=== PATIENT | female | born 1945 | race Caucasian/White ===

== ENCOUNTER 2018-07-24 08:43 | Outpatient (CLI) | payer MEDICARE, OTHER ==
[~2018-07-24] VITALS: Ht 165.1 cm; Wt 68.0 kg
--- NOTE | ~2018-07-24 | OP ---
PATIENT NAME: KENTRELL MERRILL MEDICAL RECORD: [id number] :43 LOCATION:D.CAT ADMISSION DATE: SURGEON: KASIA FLORES MD DATE OF OPERATION: 07/24/2018 PROCEDURES: 1. PTCA stent LAD. 2. Left heart catheterization. 3. Selective coronary angiography. 4. Left ventriculogram. 5. Intravascular ultrasound. INDICATION: Angina and coronary artery disease. PROCEDURE IN DETAIL: After informed consent was obtained and after a detailed description of the risks, benefits as well as alternative therapies, the patient elected to proceed with angiogram and angioplasty. The right radial area was prepped and draped in normal sterile fashion. Right radial artery was cannulated via modified Seldinger technique with placement of 6-Israeli sheath. All catheters exchanged through this sheath. FINDINGS: Left ventriculogram was performed in the standard 30-degree TRUJILLO view reveals good cardiac wall motion throughout all segments. Overall ejection fraction estimated 60%. SELECTIVE CORONARY ANGIOGRAPHY: 1. Left main is with no significant angiographic disease. 2. Left anterior descending has greater than 80% stenosis in the mid vessel confirmed by intravascular ultrasound. 3. Left circumflex has moderate irregularities, but no flow-limiting stenosis. 4. Right coronary artery has 80% stenosis times 2 in the mid vessel. PTCA STENT OF THE LAD: The stent used was a 2.75 x 22 mm Tomas. Result was 0% residual stenosis. OVERALL IMPRESSION: Successful percutaneous transluminal coronary angioplasty stent of the left anterior descending going from greater than 70% initial stenosis to 0% residual. PLAN: PTCA stent of the RCA in the near future. TRANSINT:[id number] Voice Confirmation ID: [id number] DOCUMENT ID: [id number] KASIA FLORES MD at 1059 CC: [id number] DICTATION DATE: 07/24/18 1132 ART HANDLER: 07/24/18 1136 DEP CLI 07/25/18 [place] [id number]
--- NOTE | ~2018-07-24 | OP ---
PATIENT NAME: KENTRELL MERRILL MEDICAL RECORD: [id number] :43 LOCATION:D.CAT ADMISSION DATE: SURGEON: KASIA FLORES MD DATE OF OPERATION: 07/25/2018 PROCEDURES: 1. PTCA stent RCA. 2. Selective coronary angiography. INDICATION: Angina and coronary artery disease. PROCEDURE IN DETAIL: After informed consent was obtained and after a detailed description of the risks, benefits as well as alternative therapies, the patient elected to proceed with angiogram and angioplasty. The right femoral area was prepped and draped in normal sterile fashion. Right femoral artery was cannulated via modified Seldinger technique with placement of 6-Russian sheath. All catheters exchanged through this sheath. FINDINGS: The right coronary artery has tandem areas of 70% to 80% stenosis in the mid vessel. This was addressed with a 2.5 x 22 mm Seneca stent. Result was 0% residual stenosis. OVERALL IMPRESSION: Successful percutaneous transluminal coronary angioplasty stent of the right coronary artery going from 70% to 80% percent initial stenosis to 0% residual. TRANSINT:[id number] Voice Confirmation ID: [id number] DOCUMENT ID: [id number] KASIA FLORES MD at 1059 CC: [id number] DICTATION DATE: 07/25/18911 DIESEL ENGINE SPECIALIST: 07/25/18932 DEP CLI 07/25/[address] [address]
--- NOTE | ~2018-07-24 | HEMODYNAMI ---
PATIENT:KENTRELL MERRILL MEDICAL RECORD: [id number] : 43 LOCATION:[facility] ADMISSION DATE: 07/24/18 Generatedon:07/25/20189:13 Patient name: KENTRELL MERRILL Patient #: [id number] SSN: : 1945 Date of study: 07/25/2018 Page: Of Hemodynamic Procedure Report Patient Data Patient Demographics Procedure consent was obtained First Name: KENTRELL Gender: Female Last Name: DESIRAE : 1945 Patient #: [id number] Age: 72 year(s) Race: Unknown Additional ID: [id number] Contact details [address]: [address] [place] [address] State: [place] City: [place] Zip code: [address] Past Medical History Allergies Allergen Reaction Date Comments Reported Other allergy 07/24/2018 Demerol Demerol 07/25/2018 Admission Admission Data Admission Date: 07/24/2018 Admission Time: 8:43 Room #: [facility] Height (in.): 66 BSA: 1.78 (m2) Height (cm.): 167.64 BMI: 24.53 (kg/m2) Weight (lbs.): 152 Weight (kg.): 68.95 Procedure Procedure Types Cath Procedure PCI Procedure Coronary Stent Coronary Stent Initial Procedure Description Procedure Date Procedure Date: 07/25/2018 Procedure Start Time: 9:02 Procedure End Time: 9:10 Procedure Staff Name Function Timur Ruffin MD Performing Physician Malik Sifuentes RT Monitor Barbie Bowles RT Scrub Lazaro Roldan RN Nurse Procedure Data Cath Procedure Fluoroscopy Diagnostic fluoroscopy Total fluoroscopy Time: 1.9 time: 1.9 min min Diagnostic fluoroscopy Total fluoroscopy dose: 162 dose: 162 mGy mGy Contrast Material Contrast Material Type Amount (ml) Isovue 300 39 Entry Location Entry Primary Successful Side Size Upsize Upsize Entry Closure Succes sful Closure Location (Fr) 1 (Fr) 2 (Fr) Remarks Device Remarks Femoral Right 6 Fr Exoseal artery Short Procedure Complications No complications Procedure Medications Medication Administration Route Dosage 0.9% NaCl I.V. 100 ml/hr Oxygen etCO2 Nasal cannula 2 l/min Heparin Flush Bag added to field 2 bags (1000units/500ml NS) Lidocaine 2% added to field 20 Versed I.V. 1 mg Fentanyl I.V. 50 mcg Heparin Bolus I.V. 4000 units Hemodynamics Rest BSA: 1.78 (m2) O2 Consumption: Estimated: 157.97 (ml/min) O2 Consumption indexed : Estimated:88.75 (ml/min/m) Heart Rate: 63 (bpm) Snapshots Pre Cath Intra NCS Post Cath Vital Signs Time Heart Resp SPO2 etCO2 NIBP (mmHg) Rhythm Pain Sedation Rate (ipm) (%) (mmHg) Status Level (bpm) 8:49:46 62 18 95 30.7 191/93(126) NSR 0 (11) 10(A) , No pain 8:54:08 63 13 91 30.8 164/92(121) NSR 0 (11) 10(A) , No pain 8:58:24 61 14 96 33.8 162/85(123) NSR 0 (11) 10(A) , No pain 9:02:44 54 17 97 36.8 142/70(108) NSR 0 (11) 9(A) , No pain 9:06:52 59 12 97 11.2 159/87(124) NSR 0 (11) 9(A) , No pain Medications Time Medication Route Dose Verified Delivered Reason Notes Effectiveness by by 8:49:04 0.9% NaCl I.V. 100 Lazaro Lazaro Per physician ml/hr Jamar Roldan RN, RN 8:49:14 Oxygen etCO2 2 Lazaro Lazaro Per physician Nasal l/min Jamar Roldan cannula RN RN 8:49:24 Heparin Flush added 2 Lazaro Lazaro used for Bag to bags Jamar Roldan procedure (1000units/500ml field ANDRZEJ DONNELLY NS) 8:49:34 Lidocaine 2% added 20ml Lazaro Lazaro for local to vial Jamar Roldan anesthetic field DONNELLY RN 8:57:44 Versed I.V. 1 mg Lazaro Lazaro for sedation Jamar Roldan RN, RN 8:57:53 Fentanyl I.V. 50 Lazaro Lazaro for sedation mcg Jamar Roldan RN, RN 9:03:37 Heparin Bolus I.V. 4000 Lazaro Lazaro for units Jamar Roldan anticoagulation RN fur clipper Log Time Note 8:23:35 Diagnostic Cath Status : Elective 8:23:57 Barbie Bowles RT(R) sent for patient. Start room use. 8:23:59 Patient Height : 66 inches 8:23:59 Patient Weight : 152 lbs 8:23:59 Time tracking: Regular hours (M-F 7:00 - 5:00) 8:24:10 Plan of Care:Hemodynamics will remain stable., Cardiac rhythm will remain stable., Comfort level will be maintained., Respiratory function will remain adequate., Patient/ family verbilizes understanding of procedure., Procedure tolerated without complication., Recovers from procedure without complications.. 8:40:19 Patient received from Med II to CCL 1 Alert and oriented. Tansferred to table in Supine position. 8:40:22 Warm blankets applied, and marizol hugger turned on for patient comfort. 8:40:22 Correct patient and procedure confirmed by team. 8:40:24 Signed procedure consent form obtained from patient. 8:40:26 ECG and BP/O2 sat monitors applied to patient. 8:47:33 Vital chart was started 8:47:40 Baseline sample Acquired. 8:47:44 Rhythm: sinus rhythm 8:47:46 Full Disclosure recording started 8:47:53 H&P Date Dictated: 07/24/2018 Within 30 days and on chart.. 8:47:55 Pre-op teaching completed and patient verbalized understanding. 8:47:56 Family in waiting room. 8:49:04 0.9% NaCl 100 ml/hr I.V. was administered by Lazaro Roldna RN; Per physician; 8:49:14 Oxygen 2 l/min etCO2 Nasal cannula was administered by Lazaro Roldan RN; Per physician; 8:49:24 Heparin Flush Bag (1000units/500ml NS) 2 bags added to field was administered by Lazaro Roldan RN; used for procedure; 8:49:34 Lidocaine 2% 20ml vial added to field was administered by Lazaro Roldan RN; for local anesthetic; 8:50:14 Patient NPO since Midnight. 8:50:20 Patient allergic to Demerol 8:50:25 Is the patient allergic to Iodine/contrast media? No. 8:50:27 Is patient on blood thinner?Yes 8:50:29 Patient diabetic? No. 8:50:31 ----Pre-sedation anethsthesia assessment.---- 8:50:33 Previous problem with sedation/anesthesia? No ? 8:50:34 Snore? No 8:50:36 Sleep apnea? No 8:50:37 Deviated septum? No 8:50:38 Opens mouth fully? Yes 8:50:39 Sticks out tongue? Yes 8:50:42 Airway obstruction? No ? 8:50:44 Dentures? No ? 8:50:46 Pre procedure: right dorsailis pedis pulse 2+ Normal; easily identifiable; not easily obliterated 8:50:51 Patient pain scale 0/10 ?. 8:55:58 IV patent on arrival in left forearm with 0.9% NaCl at 10ml/hr. 8:56:06 Lab results completed and on chart. 8:56:09 Right groin area was prepped with chlora-prep and draped in sterile fashion 8:56:10 Alarms reviewed by R. N. 8:56:10 Sharps counted by scrub and verified by R.N. 8:56:13 --------ALL STOP TIME OUT------ 8:56:13 Final Timeout: patient, procedure, and site verified with staff and physician. All members of the team are in agreement. 8:56:15 Right groin site verified by team. 8:56:18 Physical assessment completed. ASA score P 2 - A patient with mild systemic disease as per Timur Ruffin MD. 8:56:20 Sedation plan: IV Moderate Sedation Medication:Versed, Fentanyl 8:57:44 Versed 1 mg I.V. was administered by Lazaro Roldan RN; for sedation; 8:57:53 Fentanyl 50 mcg I.V. was administered by Lazaro Roldan RN; for sedation; 9:02:04 INFLATOR Merit BasixCompak ([id number]) opened to sterile field. 9:02:10 CHOICE PT Extra Support 182cm wire ([id number]) opened to sterile field. 9:02:15 EXOSEAL 6Fr (EX600) opened to sterile field. 9:02:18 SHEATH Prelude 6Fr 0.035 (YIN-3T-73-035) opened to sterile field. 9:02:26 ACIST Syringe (44928) opened to sterile field. 9:02:27 Bag Decanter (2001S) opened to sterile field. 9:02:28 Medline Cath Pack ([id number]) opened to sterile field. 9:02:28 DIAGNOSTIC WIRE .035 260cm J wire (393983) opened to sterile field. 9:02:30 ACIST Hand Control (11693) opened to sterile field. 9:02:31 ACIST Manifold (53318) opened to sterile field. 9:02:34 Tegaderm 4 x 4 (1626W) opened to sterile field. 9:02:43 Procedure started. 9:02:46 Local anesthetic to right femoral artery with Lidocaine 2% by Timur Ruffin MD.INITIAL ACCESS ONLY 9:02:53 A 6 Fr Short sheath was inserted into the Right Femoral artery 9:03:00 ACC Pre-intervention KENN Flow is 3. 9:03:09 6 Fr HS 2 SH guide catheter was inserted over the wire 9:03:16 GUIDE 6FR HS II SH catheter ([id number]) opened to sterile field. 9:03:25 CPTES wire advanced. 9:03:37 Heparin Bolus 4000 units I.V. was administered by Lazaro Roldan RN; for anticoagulation; 9:05:39 Procedure type changed to Cath procedure, PCI procedure, Coronary Stent, Coronary Stent Initial 9:06:06 Place stent Inflation Number: 1 A BEATRIZ RX 2.5 x 22 stent ([id number]) was prepped and advanced across the Mid RCA. The stent was deployed at 11 KAYDEN for 0:09 (min:sec). 9:06:40 Stent catheter was removed intact over wire. 9:06:42 Wire removed. 9:06:42 Guide catheter removed. 9:07:30 Sheath removed intact; hemostasis achieved with Exoseal to the Right Femoral artery. 9:07:32 Procedure ended.(Physican Out) 9:07:44 Fluoroscopy time 01.90 minutes. 9:07:48 Flurop Dose total: 162 9:07:48 Fluoroscopy dose: 162 mGy 9:07:51 Contrast amount:Isovue 300 39ml. 9:07:52 Sharps counted by scrub and verified by R.N. 9:07:54 Insertion/operative site no bleeding no hematoma. 9:07:57 Post-op/insertion site Right Femoral artery dressed using a 4 x 4 and Tegaderm. 9:07:59 Post right femoral artery:stable 9:08:01 Post Procedure Pulses reassessed and unchanged 9:08:04 Post procedure rhythm: sinus rhythm 9:08:05 Post procedure instruction explained to patient.Patient verbalizes understanding. 9:08:07 Procedure and supply charges have been captured, reviewed, submitted and are correct. 9:08:27 Procedure Complication : No complications 9:08:29 Vital chart was stopped 9:08:30 See physician's report for complete and final results. 9:10:05 Report given to Pre/Post Procedure Room. 9:10:08 Patient transfered to Pre/Post Procedure Room with Stretcher. 9:10:11 Procedure ended. 9:10:11 Full Disclosure recording stopped 9:10:34 ACC-PCI Only Patient was given prescriptions, or instructed by Timur Ruffin MD to start/continue the following medications upon discharge: Plavix 9:10:36 End room use (Document Last) Intervention Summary Intervention Notes Time ActionType Lesion and Equipment Used Action# Pressure Duration Attributes 9:06:06 Place stent Mid RCA BEATRIZ RX 2.5 x 1 11 00:09 22 stent ([id number]) Device Usage Item Name Manufacture Quantity Catalog Number Hospital Part Current Minimal Lot# / Charge Number Stock Stock Serial# Code INFLATOR Merit Merit 1 [id number] 701106 [id number] 15 [facility] CenterFastly Medical ([id number]) CHOICE PT Extra [place] 1 [id number] 090716 840263 416305 5 Support 182cm Scientific wire ([id number]) EXOSEAL 6Fr Cardinal 1 EX600 708862 622223 587324 10 (EX600) Health SHEATH Prelude Merit 1 [id number] 968676 3994465 686533 5 6Fr 0.035 Medical (VIS-3I-66-035) ACIST Syringe Acist 1 80188 497229 634127 969648 20 (24163) Medical Systems [employer] Bag Decanter Microtek 1 2001S 907436 83014 065095 5 (2001S) Medical Inc. Medline Cath Medline 1 [id number] 189914 47691 073360 5 Pack ([id number]) DIAGNOSTIC WIRE [facility] [place] 1 478072 096293 496120 141519 30 .035 260cm J wire (190475) ACIST Hand Acist 1 74617 380592 652675 146808 5 Control (96485) Medical [employer] Inc ACIST Manifold Acist 1 02965 170056 818614 009450 5 (78455) Medical Systems Inc Tegaderm 4 x 4 3M 1 1626W 285570 914828 870822 5 (1626W) GUIDE 6FR HS II Medtronic 1 [id number] 359147 02194 984368 1 SH catheter ([id number]) BEATRIZ RX 2.5 x Medtronic 1 [id number] 732928 6953160 681220 5 [id number] 22 stent ([id number]) Signature Audit [place] Stage Time Signature Unsigned Intra-Procedure 07/25/2018 Malik NAZARIO(Marvin) 9:13:08 AM Signatures Monitor : Malik Sifuentes RT Signature : Date : Time : [place] [address] [place] [address]
--- NOTE | ~2018-07-24 | HEMODYNAMI ---
PATIENT:KENTRELL MERRILL MEDICAL RECORD: [id number] : 43 LOCATION:[facility] ADMISSION DATE: 07/24/18 Generatedon:07/24/201811:35 Patient name: KENTRELL MERRILL Patient #: [id number] SSN: : 1945 Date of study: 07/24/2018 Page: Of Hemodynamic Procedure Report Patient Data Patient Demographics Procedure consent was obtained First Name: KENTRELL Gender: Female Last Name: DESIRAE : 1945 Patient #: [id number] Age: 72 year(s) Race: Unknown Additional ID: [id number] Contact details [address]: [address] [place] [address] State: [place] City: [place] Zip code: [address] Past Medical History Allergies Allergen Reaction Date Comments Reported Other allergy 07/24/2018 Demerol Admission Admission Data Admission Date: 07/24/2018 Admission Time: 8:43 Height (in.): 66 BSA: 1.78 (m2) Height (cm.): 167.64 BMI: 24.53 (kg/m2) Weight (lbs.): 152 Weight (kg.): 68.95 Procedure Procedure Types Cath Procedure Diagnostic Procedure LHC LH w/Coronaries FFR/IVUS Intra-Coronary IVUS Initial Sedation Charges Moderate Sedation up to 15 minutes PCI Procedure Coronary Stent Coronary Stent Initial Procedure Description Procedure Date Procedure Date: 07/24/2018 Procedure Start Time: 11:14 Procedure End Time: 11:33 Procedure Staff Name Function Timur Ruffin MD Performing Physician Micah Martinez RN Utilization Manager Hanane Hairston RT Monitor Duane Romero RN Nurse Barbie Bowles RT Scrub Procedure Data Cath Procedure Fluoroscopy Diagnostic fluoroscopy Total fluoroscopy Time: 5.2 time: 5.2 min min Diagnostic fluoroscopy Total fluoroscopy dose: 527 dose: 527 mGy mGy Contrast Material Contrast Material Type Amount (ml) Isovue 300 85 Entry Location Entry Primary Successful Side Size Upsize Upsize Entry Closure Hopkins ccessful Closure Location (Fr) 1 (Fr) 2 (Fr) Remarks Device Remarks Radial Right 6 Fr Mechanical artery Short Compression Estimated blood loss: 10 ml Diagnostic catheters Device Type Used For End Catheter Placement DIAGNOSTIC [place] 110cm 5 Procedure Fr catheter ([id number]) Procedure Complications No complications Procedure Medications Medication Administration Route Dosage Oxygen etCO2 Nasal cannula 2 l/min Lidocaine 2% added to field 20 Heparin Flush Bag added to field 2 bags (1000units/500ml NS) 0.9% NaCl I.V. 100 ml/hr Radial Cocktail I.A. 1 syringe (Verapomil 2mg/Nitro 400mcg/Heparin 1500units) Versed I.V. 1 mg Fentanyl I.V. 50 mcg Versed I.V. 0.5 mg Fentanyl I.V. 25 mcg Heparin Bolus I.V. 4000 units Integrilin (Bolus I.V. 6.2 ml 2mg/ml) Plavix P.O. 600 mg Hemodynamics Rest BSA: 1.78 (m2) O2 Consumption: Estimated: 153.36 (ml/min) O2 Consumption indexed : Estimated:86.16 (ml/min/m) Heart Rate: 56 (bpm) Snapshots Pre Cath Intra NCS Post Cath Vital Signs Time Heart Resp SPO2 etCO2 NIBP (mmHg) Rhythm Pain Sedation Rate (ipm) (%) (mmHg) Status Level (bpm) 10:39:10 55 18 94 29 136/74(97) NSR 0 (11) 10(A) , No pain 10:43:16 61 13 98 37.2 142/82(105) NSR 0 (11) 10(A) , No pain 10:47:26 59 15 96 38.7 139/78(101) NSR 0 (11) 10(A) , No pain 10:51:38 61 13 96 39.4 136/71(99) NSR 0 (11) 10(A) , No pain 10:55:48 56 13 97 39.4 120/74(96) NSR 0 (11) 10(A) , No pain 10:59:54 58 13 97 39.4 118/66(93) NSR 0 (11) 10(A) , No pain 11:03:59 58 14 96 38.7 118/67(89) NSR 0 (11) 10(A) , No pain 11:08:05 55 14 97 38.7 115/65(84) NSR 0 (11) 10(A) , No pain 11:12:11 58 13 96 11.9 110/64(88) NSR 0 (11) 9(A) , No pain 11:16:19 61 15 98 20.8 103/47(92) NSR 0 (11) 9(A) , No pain 11:20:21 71 15 95 32.7 118/57(93) NSR 0 (11) 9(A) , No pain 11:24:26 68 17 96 32 124/62(84) NSR 0 (11) 9(A) , No pain 11:28:34 66 17 97 34.2 114/60(83) NSR 0 (11) 10(A) , No pain 11:33:33 67 12 98 32.7 124/74(101) NSR 0 (11) 10(A) , No pain Medications Time Medication Route Dose Verified Delivered Reason Not es Effectiveness by by 10:43:02 Oxygen etCO2 2 l/min Timur Zepeda used for Nasal Laly Romero RN procedure cannula 10:43:10 Lidocaine 2% added 20ml Timur Ding for local to vial Laly Ruffin MD anesthetic field 10:43:16 Heparin Flush added 2 bags Timur Ding used for Bag to Laly Ruffin MD procedure (1000units/500ml field NS) 10:43:27 0.9% NaCl I.V. 100 Timur Zepeda Per physician ml/hr Laly Romero RN 11:08:25 Versed I.V. 1 mg Timur Zepeda for sedation Laly Romero RN 11:08:31 Fentanyl I.V. 50 mcg Timur Zepeda for sedation Laly Romero RN 11:15:23 Radial Cocktail I.A. 1 Timur Timur for (Verapomil syringe Laly Ruffin MD vasodilation 2mg/Nitro 400mcg/Heparin 1500units) 11:15:35 Versed I.V. 0.5 mg Timur Lopezie for sedation Laly Romero RN 11:15:40 Fentanyl I.V. 25 mcg Timur Lopezie for sedation Laly Romero RN 11:20:45 Heparin Bolus I.V. 4000 Timur Lopezie for cindi ified units Laly Romero RN anticoagulation with dr ruffin 11:22:13 Integrilin I.V. 6.2 ml Timur Buffie for was alicia (Bolus 2mg/ml) Laly Romero RN antiplatelet 3.8 ml therapy of vial 11:30:02 Plavix P.O. 600 mg Timur Romero RN antiplatelet therapy Procedure Log Time Note 10:32:42 Patient Height : 66 inches 10:32:46 Patient Weight : 152 lbs 10:33:20 Diagnostic Cath status Elective 10:33:22 Micah Martinez RN sent for patient. Start room use. 10:33:51 Time tracking: Regular hours (M-F 7:00 - 5:00) 10:33:57 Plan of Care:Hemodynamics will remain stable., Cardiac rhythm will remain stable., Comfort level will be maintained., Respiratory function will remain adequate., Patient/ family verbilizes understanding of procedure., Procedure tolerated without complication., Recovers from procedure without complications.. 10:34:22 Patient received from Pre/Post Procedure Room to [facility] 2 Alert and oriented. Tansferred to table in Supine position. 10:34:24 Warm blankets applied, and marizol hugger turned on for patient comfort. 10:34:24 Correct patient and procedure confirmed by team. 10:34:27 Signed procedure consent form obtained from patient. 10:34:28 ECG and BP/O2 sat monitors applied to patient. 10:38:00 Vital chart was started 10:42:50 Baseline sample Acquired. 10:43:01 Rhythm: sinus rhythm 10:43:02 Oxygen 2 l/min etCO2 Nasal cannula was administered by Duane Romero RN; used for procedure; 10:43:03 Full Disclosure recording started 10:43:10 Lidocaine 2% 20ml vial added to field was administered by Timur Ruffin MD; for local anesthetic; 10:43:16 Heparin Flush Bag (1000units/500ml NS) 2 bags added to field was administered by Timur Ruffin MD; used for procedure; 10:43:18 H&P Date Dictated: 07/19/2018 Within 30 days and on chart., H&P Addendum completed by physician on day of procedure. (MUST COMPLETE FOR ALL OUTPATIENTS). 10:43:20 Pre-procedure instructions explained to patient. 10:43:22 Family in waiting room. 10:43:23 Patient NPO since Midnight. 10:43:27 0.9% NaCl 100 ml/hr I.V. was administered by Duane Romero RN; Per physician; 10:43:36 Patient allergic to Other allergyDemerol 10:43:39 Is the patient allergic to Iodine/contrast media? No. 10:43:40 Was the patient premedicated? Yes 10:43:42 Is patient on blood thinner?No 10:43:43 Patient diabetic? No. 10:44:01 Previous problem with sedation/anesthesia? No ? 10:44:12 Snore? No 10:44:13 Sleep apnea? No 10:44:24 Patient pain scale 0/10 ?. 10:45:04 IV patent on arrival in left forearm with 0.9% NaCl at [facility]. 10:45:08 Lab results completed and on chart. 10:45:12 Right Radial & Right Groin area was prepped with chlora-prep and draped in sterile fashion 10:45:13 Alarms reviewed by R. N. 10:45:13 Sharps counted by scrub and verified by R.N. 10:45:15 Physician paged 11:07:23 Physician arrived 11:07:24 --------ALL STOP TIME OUT------ 11:07:25 Final Timeout: patient, procedure, and site verified with staff and physician. All members of the team are in agreement. 11:07:30 Right Radial & Right Groin site verified by team. 11:07:33 Physical assessment completed. ASA score P 2 - A patient with mild systemic disease as per Timur Ruffin MD. 11:07:38 Sedation plan: IV Moderate Sedation Medication:Versed, Fentanyl 11:07:48 Use device set Radial Dx or PCI 11:08:10 ACIST Syringe (07303) opened to sterile field. 11:08:11 Medline Cath Pack ([id number]) opened to sterile field. 11:08:11 Bag Decanter () opened to sterile field. 11:08:12 DIAGNOSTIC WIRE .035 260cm J wire (952069) opened to sterile field. 11:08:13 ACIST Hand Control (40398) opened to sterile field. 11:08:13 ACIST Manifold (68232) opened to sterile field. 11:08:14 Tegaderm 4 x 4 (1626W) opened to sterile field. 11:08:15 MBrace Wrist Support ([id number]) opened to sterile field. 11:08:16 NEEDLE Cook 21G 4cm Radial (D18517) opened to sterile field. 11:08:20 SHEATH 6Fr Prelude Radial ([id number]) opened to sterile field. 11:08:24 Zero performed for pressure channel P1 11:08:25 Versed 1 mg I.V. was administered by Duane Romero RN; for sedation; 11:08:31 Fentanyl 50 mcg I.V. was administered by Duane Romero RN; for sedation; 11:13:47 Procedure started. 11:14:04 Local anesthetic to right radial artery with Lidocaine 2% by Timur Ruffin MD.INITIAL ACCESS ONLY 11:14:15 A 6 Fr Short sheath was inserted into the Right Radial artery 11:14:24 A DIAGNOSTIC [place] 110cm 5 Fr catheter (390302) was advanced over the wire and used for Procedure. 11:14:27 TR BAND Standard ([id number]) opened to sterile field. 11:14:39 LV angiography performed. 11:15:23 Radial Cocktail (Verapomil 2mg/Nitro 400mcg/Heparin 1500units) 1 syringe I.A. was administered by Timur Ruffin MD; for vasodilation; 11:15:35 Versed 0.5 mg I.V. was administered by Duane Romero RN; for sedation; 11:15:40 Fentanyl 25 mcg I.V. was administered by Duane Romero RN; for sedation; 11:15:54 LV gram done using TRUJILLO 11:16:01 EF : 60 % 11:17:17 RCA angiography performed. 11:17:22 Catheter removed. 11:17:41 GUIDE 6FR XBLAD 3.5 catheter ([id number]) opened to sterile field. 11:17:55 LCA angiography performed. 11:19:39 CHOICE PT Extra Support 182cm wire ([id number]) opened to sterile field. 11:19:40 INFLATOR Merit BasixCompak (TJ6595) opened to sterile field. 11:19:47 Proceeding to intervention. 11:20:03 choice pt ex wire advanced. 11:20:45 Heparin Bolus 4000 units I.V. was administered by Duane Romero RN; for anticoagulation; verified with dr ruffin 11:20:46 Wire advanced across lesion. 11:21:27 IVUS catheter advanced over wire. 11:22:13 Integrilin (Bolus 2mg/ml) 6.2 ml I.V. was administered by Duane Romero RN; for antiplatelet therapy; wasted 3.8 ml of vial 11:: IVUS catheter removed over wire. 11:25:15 Choice ex exchanged for long wire 11::29 CHOICE PT Extra Support J 300cm guide wire ([id number]) opened to sterile field. 11::46 Place stent Inflation Number: 1 A BEATRIZ OTW 2.75 x 22 stent ([id number]) was prepped and advanced across the Mid LAD. The stent was deployed at 15 KAYDEN for 0:11 (min:sec). 11::33 Stent catheter was removed intact over wire. 11::34 Wire removed. 11::34 Guide catheter removed. 11::45 Sheath removed intact; hemostasis achieved with Mechanical Compression to the Right Radial artery. 11:29:47 Procedure ended.(Physican Out) 11:30:02 Plavix 600 mg P.O. was administered by Duane Romero RN; for antiplatelet therapy; 11::24 Fluoroscopy time 05.20 minutes. 11:30:27 Flurop Dose total: 527 11::27 Fluoroscopy dose: 527 mGy 11::33 Contrast amount:Isovue 300 85ml. 11:30:34 Sharps counted by scrub and verified by R.N. 11:30:37 TR band inflated with 13cc of air. 11:30:56 Insertion/operative site no bleeding no hematoma. 11:31:03 Post-op/insertion site Right Radial artery dressed using a 4 x 4 and Tegaderm. 11:31:10 Post-procedure physical assessment completed. ASA score P 2 - A patient with mild systemic disease as per Timur Ruffin MD. 11:31:13 Post procedure rhythm: unchanged. 11::18 Estimated blood loss: 10 ml 11:31:19 Post procedure instruction explained to patient.Patient verbalizes understanding. 11::45 Procedure type changed to Cath procedure, Diagnostic procedure, LHC, LHC w/Coronaries, FFR/IVUS, Intra-Coronary IVUS Initial, Sedation Charges, Moderate Sedation up to 15 minutes, PCI procedure, Coronary Stent, Coronary Stent Initial 11:31:48 Procedure and supply charges have been captured, reviewed, submitted and are correct. 11:32:49 Procedure Complication : No complications 11:32:52 Vital chart was stopped 11:32:52 See physician's report for complete and final results. 11:32:54 Report given to Pre/Post Procedure Room. 11:32:58 Patient transfered to [facility] with Bed. 11:33:00 Procedure ended. 11:33:00 Full Disclosure recording stopped 11:33:04 End room use (Document Last) Intervention Summary Intervention Notes Time ActionType Lesion and Equipment Action# Pressure Duration Attributes Used 11:26:46 Place stent Mid LAD BEATRIZ OTW 2.75 1 15 00:11 x 22 stent ([id number]) Device Usage Item Name Manufacture Quantity Catalog Number Hospital Part Current Minimal Lot# / Charge Number Stock Stock Serial# Code ACIST Syringe Acist 1 47605 [id number] 488306 686816 20 (51226) Medical [employer] Medline Cath Medline 1 [id number] 423195 26536 773603 5 Pack ([id number]) Bag Decanter Microtek 1 2001S 609914 23073 940078 5 (2001S) Medical Inc. DIAGNOSTIC WIRE [facility] [place] 1 536131 825388 729557 851392 30 .035 260cm J wire (892464) ACIST Hand Acist 1 37439 769063 329085 874775 5 Control (80951) [employer] Inc ACIST Manifold Acist 1 30406 446344 437056 622414 5 (22258) Medical Systems Inc Tegaderm 4 x 4 3M 1 1626W 989835 096542 639794 5 (1626W) MBrace Wrist Advanced 1 140-0250-00 658008 90150 442041 5 Support Vascular ([id number]) Dynamics NEEDLE Cook 21G Cook Medical 1 F90368 771566 355840 221844 5 4cm Radial (T92329) SHEATH 6Fr Merit 1 [id number] 779920 866853 341844 5 Prelude Radial Medical ([id number]) DIAGNOSTIC Terumo 1 40-3053 424551 325214 529494 5 [place] 110cm 5 Fr catheter (514706) TR BAND Terumo 1 [id number] 914026 383439 449414 40 Standard ([id number]) GUIDE 6FR XBLAD Cardinal 1 [id number] 991307 448969 074201 10 3.5 catheter Health (64110201) CHOICE PT Extra [place] 1 [id number] 526487 977505 105121 5 Support 182cm Scientific wire ([id number]) INFLATOR Merit Merit 1 KR4301 182031 504230 293059 15 [facility] Medical (BY1465) CHOICE PT Extra [place] 1 [id number] 466792 186459 906908 5 Support J 300cm Scientific guide wire ([id number]) BEATRIZ OTW 2.75 x Medtronic 1 [id number] 222546 9120386 278847 5 [id number] 22 stent ([id number]) Signature Audit [place] Time Signature Unsigned Intra-Procedure 07/24/2018 Hanane Hairston 11:35:13 AM RT(R) Signatures Monitor : Hanane Hairston Signature : RT Date : Time : [place] [id number] [place] [address]
--- NOTE | ~2018-07-24 | DS ---
PATIENT:KENTRELL RIVERA :43 MEDICAL RECORD: [id number] DISCHARGE SUMMARY ADMISSION DATE: 07/24/18 DISCHARGE DATE: 07/25/18 DIAGNOSES: 1. Angina. 2. Coronary artery disease. 3. PTCA stent RCA and LAD this admission. HOSPITAL COURSE: Ms. Rivera presents with anginal symptomatology, found to have 2-vessel coronary artery disease of the RCA and LAD, underwent successful PTCA stent of both territories, was discharged home with the addition of aspirin and Plavix to her medical regimen. Follow up with [facility] in [facility] month. TRANSINT:[id number] Voice Confirmation ID: [id number] DOCUMENT ID: [id number] KASIA FLORES MD at 1059 CC: [id number] DICTATION DATE: 07/25/18912 PRINCIPLE SOFTWARE ENGINEER: 07/25/18 2311 DEP CLI 07/25/[address] [address]
[2018-07-24] MEDS ORDERED: METOPROLOL TART25 MG PO (09:07)
[2018-07-24 09:20] VITALS: BP 154/84; BMI 24.6
[2018-07-24 09:53] LABS: BASOPHILS 0.1 % (0-2); EOSINOPHILS 2.1 % (0-7); HEMATOCRIT 47.1 % (36.0-48.0); HEMOGLOBIN 15.8 g/dL (12-16); IMMATURE GRANULOCYTES 0.2 % (0-5); LYMPHOCYTES 18.5 % (15-50); MCH 30.4 pg (26.0-34.0); MCHC 33.5 g/dL (31.0-37.0); MCV 90.6 fL (80.0-100.0); MEAN PLATELET VOLUME 10.4 fL (7.4-10.4); MONOCYTES 7.1 % (2-11); PLATELET COUNT 179 10x3/uL (130-400); RDW 13.2 % (11.5-14.5); WBC 8.9 10x3/uL (4.8-10.8)
[2018-07-24 10:05] LABS: CALC OSMOLALITY 285 mosm/kg (275-300); CALCIUM 9.5 mg/dL (8.5-10.1); CARBON DIOXIDE 29.7 mmol/L (21.0-32.0); CHLORIDE - SERUM 105 mmol/L (98-107); CREATININE - SERUM 0.7 mg/dL (0.6-1.3); GLUCOSE 94 mg/dL (74-106); POTASSIUM - SERUM 3.9 mmol/L (3.5-5.1); SODIUM 143 mmol/L (136-145); UREA NITROGEN 16 mg/dL (7-18); eGFR NON AFRICAN AMERICAN 87 mL/min (90-120)
[2018-07-24 14:49] VITALS: BP 131/76; Ht 165.1 cm; Wt 68.0 kg
[2018-07-24 21:01] VITALS: BP 124/73
[2018-07-25 01:29] VITALS: BP 117/63
[2018-07-25 05:44] VITALS: BP 170/87
[2018-07-25 08:13] VITALS: BP 156/80
[2018-07-25] MEDS ORDERED: PLAVIX75 MG PO (09:48)
== END 2018-07-25 13:40 | disposition home or self-care (01) ==
LOC: D.CATH 08:43 → D.M2 08:43 → D.CATH 10:30 → D.M2 14:01 → D.CLR 07-25 09:26 → D.CATH 07-25 13:40
PROVIDERS: Internal Medicine Interventional Cardiology
DX: I25.119 Atherosclerotic heart disease of native coronary artery with unspecified angina pectoris (principal); Z01.812 Encounter for preprocedural laboratory examination
CPT/HCPCS: 92978; 93458; C9600 ×2

== ENCOUNTER → 2018-12-05 09:54 | Outpatient (CLI) | payer MEDICARE, OTHER ==
[2018-07-24 14:49] VITALS: BMI 25.0
[~2018-12-05 09:54] MED LIST: METOPROLOL TART25 MG PO; PLAVIX75 MG PO
== END | disposition home or self-care (01) ==
LOC: D.HCCARDIO 09:54
PROVIDERS: ATTEND Internal Medicine Cardiovascular Disease
DX: I25.119 Atherosclerotic heart disease of native coronary artery with unspecified angina pectoris (principal)

== ENCOUNTER 2019-02-09 09:55 | Outpatient (CLI) | payer MEDICARE, OTHER ==
[~2019-02-09] VITALS: Ht 165.1 cm; Wt 68.2 kg
--- NOTE | ~2019-02-09 | HEMODYNAMI ---
PATIENT:KENTRELL MERRILL MEDICAL RECORD: [id number] : 43 LOCATION:[facility] ADMISSION DATE: 02/09/19 Generatedon:02/09/201914:06 Patient name: KENTRELL MERRILL Patient #: [id number] SSN: : 1945 Date of study: 02/09/2019 Page: Of Hemodynamic Procedure Report Patient Data Patient Demographics Procedure consent was obtained First Name: KENTRELL Gender: Female Last Name: DESIRAE : 1945 Patient #: [id number] Age: 73 year(s) Race: Additional ID: [id number] Contact details [address]: [address] [place] [address] State: [place] City: [place] Zip code: [address] Past Medical History Allergies Allergen Reaction Date Comments Reported Other allergy 07/24/2018 Demerol Demerol 07/25/2018 Admission Admission Data Admission Date: 02/09/2019 Admission Time: 9:55 Arrival Date: 02/09/2019 Arrival Time: 0:00 Admit Source: Other Height (in.): 64.96 BSA: 1.75 (m2) Height (cm.): 165 BMI: 24.98 (kg/m2) Weight (lbs.): 149.92 Weight (kg.): 68 Lab Results Lab Result Date: 02/09/2019 Lab Result Time: 0:00 Biochemistry Name Units Result Min Max BUN mg/dl 13 --(--*-)-- 7 18 Creatinine mg/dl 0.8 --(-*--)-- 0.6 1.3 CBC Name Units Result Min Max Hemoglobin g/dl 15.1 --(-*--)-- 13.5 17.5 Procedure Procedure Types Cath Procedure Diagnostic Procedure [facility] w/Coronaries Procedure Description Procedure Date Procedure Date: 02/09/2019 Procedure Start Time: 13:57 Procedure End Time: 14:04 Procedure Staff Name Function Timur Ruffin MD Performing Physician Barbie Bowles RT Monitor Madison Peralta RN Nurse Puneet Banuelos RT Scrub Procedure Data Cath Procedure Fluoroscopy Diagnostic fluoroscopy Total fluoroscopy Time: 1 time: 1 min min Diagnostic fluoroscopy Total fluoroscopy dose: 287 dose: 287 mGy mGy Contrast Material Contrast Material Type Amount (ml) Isovue 370 33 Entry Location Entry Primary Successful Side Size Upsize Upsize Entry Closure Hopkins ccessful Closure Location (Fr) 1 (Fr) 2 (Fr) Remarks Device Remarks Radial Right 6 Fr Mechanical artery Short Compression Estimated blood loss: 5 ml Diagnostic catheters Device Type Used For End Catheter Placement DIAGNOSTIC [place] 110cm 5 Multi-vessel Fr catheter ([id number]) Angiography Procedure Complications No complications Procedure Medications Medication Administration Route Dosage 0.9% NaCl I.V. 100 ml/hr Oxygen etCO2 Nasal cannula 2 l/min Lidocaine 2% added to field 20 Heparin Flush Bag added to field 2 bags (1000units/500ml NS) Radial Cocktail added to field 1 syringe (Verapamil 2mg/Nitro 400mcg/Heparin 1500units) Versed I.V. 2 mg Fentanyl I.V. 50 mcg Hemodynamics Rest BSA: 1.75 (m2) HGB: 15.1 (g/dl) O2 Consumption: Estimated: 155.21 (ml/min) O2 Co nsumption indexed: Estimated:88.69 (ml/min/m) Heart Rate: 63 (bpm) Pressure Samples Time Site Value (mmHg) Purpose Heart Use Rate(bpm) 13:59 LV 164/-6,1 Snapshot 72 Snapshots Pre Cath Intra NCS Post Cath Vital Signs Time Heart Resp SPO2 etCO2 NIBP (mmHg) Rhythm Pain Sedation Rate (ipm) (%) (mmHg) Status Level (bpm) 13:41:42 57 16 97 36.8 156/85(125) SB 0 (11) 10(A) , No pain 13:46:40 61 5 99 39.1 Measuring NSR 0 (11) 10(A) , No pain 13:47:03 65 12 99 36 198/109(127) NSR 0 (11) 10(A) , No pain 13:51:29 73 17 99 36.8 179/98(124) NSR 0 (11) 10(A) , No pain 13:55:51 65 14 100 31.6 174/95(119) NSR 0 (11) 9(A) , No pain 14:00:14 75 13 99 27 140/84(101) NSR 0 (11) 10(A) , No pain 14:04:23 74 15 96 36.1 150/90(114) NSR 0 (11) 10(A) , No pain Medications Time Medication Route Dose Verified Delivered Reason Notes E ffectiveness by by 13:40:39 0.9% NaCl I.V. 100 Timur Madison used for ml/hr Laly Peralta theoretical physics teacher 13:40:46 Oxygen etCO2 2 l/min Timur Madison used for Nasal Laly Peralta procedure cannula RN 13:40:51 Lidocaine 2% added 20ml Timurcarol Ding for local to vial Laly Ruffin MD anesthetic field 13:40:55 Heparin Flush added 2 bags Timur Ding used for Bag to Laly Ruffin MD procedure (1000units/500ml field NS) 13:41:00 Radial Cocktail added 1 Timur Ding used for (Verapamil to syringe Laly Ruffin MD procedure 2mg/Nitro field 400mcg/Heparin 1500units) 13:52:38 Versed I.V. 2 mg Timur Lemusyla for Laly Peralta sedation RN 13:52:44 Fentanyl I.V. 50 mcg Timur Meridaa for Laly Peralta sedation assistant professor of psychology Log Time Note 13:27:37 Diagnostic Cath Status : Elective 13:28:49 Puneet Banuelos RT(R) (CV) sent for patient. Start room use. 13:28:55 Time tracking: Regular hours (M-F 7:00 - 5:00) 13:29:03 Plan of Care:Hemodynamics will remain stable., Cardiac rhythm will remain stable., Comfort level will be maintained., Respiratory function will remain adequate., Patient/ family verbilizes understanding of procedure., Procedure tolerated without complication., Recovers from procedure without complications.. 13:40:27 Vital chart was started 13:40:39 0.9% NaCl 100 ml/hr I.V. was administered by Madison Peralta RN; used for procedure; 13:40:46 Oxygen 2 l/min etCO2 Nasal cannula was administered by Madison Peralta RN; used for procedure; 13:40:51 Lidocaine 2% 20ml vial added to field was administered by Timur Ruffin MD; for local anesthetic; 13:40:55 Heparin Flush Bag (1000units/500ml NS) 2 bags added to field was administered by Timur Ruffin MD; used for procedure; 13:41:00 Radial Cocktail (Verapamil 2mg/Nitro 400mcg/Heparin 1500units) 1 syringe added to field was administered by Timur Ruffin MD; used for procedure; 13:44:00 Patient received from Pre/Post Procedure Room to CCL 2 Alert and oriented. Tansferred to table in Supine position. 13:44:02 Warm blankets applied, and marizol hugger turned on for patient comfort. 13:44:02 Correct patient and procedure confirmed by team. 13:44:03 Signed procedure consent form obtained from patient. 13:44:04 ECG and BP/O2 sat monitors applied to patient. 13:44:05 Baseline sample Acquired. 13:44:10 Rhythm: sinus rhythm 13:44:11 Full Disclosure recording started 13:44:15 H&P Date Dictated: 02/09/2019 Within 30 days and on chart., H&P Addendum completed by physician on day of procedure. (MUST COMPLETE FOR ALL OUTPATIENTS). 13:44:16 Pre-procedure instructions explained to patient. 13:44:17 Pre-op teaching completed and patient verbalized understanding. 13:44:18 Family in waiting room. 13:44:20 Patient NPO since Midnight. 13:44:22 Is the patient allergic to Iodine/contrast media? No. 13:44:23 Was the patient premedicated? No 13:44:33 Is patient on blood thinner?Yes 13:44:35 Patient diabetic? No. 13:44:38 ACC The patient was administered the following blood thiners within the last 24 hours: ACCPlavix 13:45:36 Previous problem with sedation/anesthesia? No ? 13:45:38 Snore? Yes 13:45:39 Sleep apnea? No 13:45:40 Deviated septum? No 13:45:41 Opens mouth fully? Yes 13:45:43 Sticks out tongue? Yes 13:46:02 Airway obstruction? No ? 13:46:15 Dentures? No ? 13:46:18 Pre procedure: right dorsailis pedis pulse 2+ Normal; easily identifiable; not easily obliterated 13:46:20 Pre procedure: left dorsailis pedis pulse 2+ Normal; easily identifiable; not easily obliterated 13:46:21 Patient pain scale 0/10 ?. 13:47:11 IV patent on arrival in left forearm with 0.9% NaCl at [facility]. 13:47:13 Lab results completed and on chart. 13:47:28 Right Radial & Right Groin area was prepped with chlora-prep and draped in sterile fashion 13:47:28 Alarms reviewed by R. N. 13:47:29 Sharps counted by scrub and verified by R.N. 13:47:31 Physician arrived 13:47:32 --------ALL STOP TIME OUT------ 13:47:32 Final Timeout: patient, procedure, and site verified with staff and physician. All members of the team are in agreement. 13:47:35 Right Radial & Right Groin site verified by team. 13:47:40 Maximum allowable Isovue 300 dose 300ml. Physician notified. (300ml for normal creatinines. For patients with creatinine of 1.7 or higher multiply weight(kg) x 5 divided by creatinine.) 13:47:43 Fire Safety Assessment: A--An alcohol-based skin anteseptic being used preoperatively., C--Open oxygen or nitrous oxide is being used., D--An ESU, laser, or fiber-optic light is being used. 13:47:47 Physical assessment completed. ASA score P 2 - A patient with mild systemic disease as per Timur Ruffin MD. 13:47:53 Sedation plan: IV Moderate Sedation Medication:Versed, Fentanyl 13:47:56 Use device set Radial Dx or PCI 13:47:57 ACIST Syringe (18867) opened to sterile field. 13:47:58 Medline Cath Pack ([id number]) opened to sterile field. 13:47:58 Bag Decanter () opened to sterile field. 13:47:58 DIAGNOSTIC WIRE .035 260cm J wire (667318) opened to sterile field. 13:47:59 ACIST Hand Control (98541) opened to sterile field. 13:47:59 ACIST Manifold (99680) opened to sterile field. 13:48:00 Tegaderm 4 x 4 (1626W) opened to sterile field. 13:48:00 MBrace Wrist Support ([id number]) opened to sterile field. 13:48:01 SHEATH 6FR Slender (80-8584) opened to sterile field. 13:52:38 Versed 2 mg I.V. was administered by Madison Peralta RN; for sedation; 13:52:44 Fentanyl 50 mcg I.V. was administered by Madison Peralta RN; for sedation; 13:55:12 Lab Result : Hemoglobin 15.1 g/dl 13:55:12 Lab Result : Creatinine 0.8 mg/dl 13:55:12 Lab Result : BUN 13 mg/dl 13:55:32 Patient Height : 64.96 inches 13:55:36 Patient Weight : 149.92 lbs 13:55:38 Admit Source: Other 13:55:41 Arrival Date: 02/09/2019 12:00:00 AM 13:57:25 Procedure started. 13:57:34 Local anesthetic to right radial artery with Lidocaine 2% by Timur Ruffin MD.INITIAL ACCESS ONLY 13:57:44 A 6 Fr Short sheath was inserted into the Right Radial artery 13:57:59 A DIAGNOSTIC [place] 110cm 5 Fr catheter (600383) was advanced over the wire and used for Multi-vessel Angiography. 13:58:05 Zero performed for pressure channel P1 13:59:34 LV hemodynamics recorded. 13:59:36 LV gram done using TRUJILLO 13:59:39 Injector settings: Ml/sec: 5, Volume: 15, 13:59:46 EF : 50 % 14:00:11 LCA angiography performed. 14:00:14 Injector settings: Ml/sec: 3, Volume: 6, 14:01:03 RCA angiography performed. 14:01:08 Injector settings: Ml/sec: 3, Volume: 6, 14:01:13 TR BAND Standard ([id number]) opened to sterile field. 14:01:40 Sheath removed intact; hemostasis achieved with Mechanical Compression to the Right Radial artery. 14:01:44 Procedure ended.(Physican Out) 14:03:08 Fluoroscopy time 01.00 minutes. 14:03:12 Flurop Dose total: 287 14:03:12 Fluoroscopy dose: 287 mGy 14:03:18 Contrast amount:Isovue 370 33ml. 14:03:19 Sharps counted by scrub and verified by R.N. 14:03:25 TR band inflated with 13cc of air. 14:03:26 Insertion/operative site no bleeding no hematoma. 14:03:28 Post Procedure Pulses reassessed and unchanged 14:03:31 Post procedure rhythm: unchanged. 14:03:33 Estimated blood loss: 5 ml 14:03:35 Post procedure instruction explained to patient.Patient verbalizes understanding. 14:03:35 Patient needs reinforcement of post procedure teaching. 14:03:41 Procedure and supply charges have been captured, reviewed, submitted and are correct. 14:03:45 Procedure Complication : No complications 14:03:49 Vital chart was stopped 14:03:49 See physician's report for complete and final results. 14:03:54 Report given to Pre/Post Procedure Room. 14:03:58 Patient transfered to Pre/Post Procedure Room with Stretcher. 14:04:07 Procedure ended. 14:04:07 Full Disclosure recording stopped 14:04:12 End room use (Document Last) Device Usage Item Name Manufacture Quantity Catalog Hospital Part Current Minimal Lot# / Number Charge Number Stock Stock Serial# Code ACIST Acist 1 04071 001606 541191 [id number] 20 Syringe Medical (95288) Systems Inc Medline Medline 1 [id number] 392155 72622 196263 5 Cath Pack ([id number]) Bag Microtek 1 2002S 021462 61006 129993 5 Decanter Medical Inc. (2001S) DIAGNOSTIC [place] 1 801222 637909 208894 553403 30 WIRE .035 260cm J wire (067648) ACIST Hand Acist 1 36841 797691 146798 466379 5 Control Medical (24879) Systems Inc ACIST Acist 1 84211 080296 290624 088851 5 Manifold Medical (49066) Systems Inc Tegaderm 4 3M 1 1626W 812015 161251 758490 5 x 4 (1626W) MBrace Advanced 1 140-0250-00 152795 58645 558246 5 Wrist Vascular Support Dynamics ([id number]) SHEATH 6FR Terumo 1 [id number] 346484 538695 894968 5 Slender (80-1060) DIAGNOSTIC Terumo 1 40-9603 419551 302939 665548 5 [place] 110cm 5 Fr catheter (244907) TR BAND Terumo 1 [id number] 385596 738599 833355 40 Standard ([id number]) Signature Audit Madelia Stage Time Signature Unsigned Intra-Procedure 02/09/2019 Barbie Bowles 2:06:50 PM RT(R) Signatures Monitor : Barbie Bowles RT Signature : Date : Time : [address] [place] [address]
[2019-02-09] MEDS ORDERED: LIPITOR40 MG PO (10:05)
[2019-02-09 10:18] VITALS: BP 163/75; Ht 165.1 cm; Wt 68.2 kg
[2019-02-09 10:45] LABS: ANION GAP 11.5 mmol/L (8-16); CALCIUM 9.7 mg/dL (8.5-10.1); CARBON DIOXIDE 29.5 mmol/L (21.0-32.0); CREATININE - SERUM 0.8 mg/dL (0.6-1.3)
[2019-02-09 10:52] LABS: BASOPHILS 0.1 % (0-2); HEMATOCRIT 44.4 % (36.0-48.0); HEMOGLOBIN 15.1 g/dL (12-16); IMMATURE GRANULOCYTES 0.1 % (0-5); LYMPHOCYTES 28.3 % (15-50); MCH 30.4 pg (26.0-34.0); MCV 89.3 fL (80.0-100.0); MEAN PLATELET VOLUME 9.9 fL (7.4-10.4); NEUTROPHILS 63.5 % (40-80); PLATELET COUNT 195 10x3/uL (130-400); RBC 4.97 10x6/uL (4.00-5.40)
--- NOTE | 2019-02-09 14:25 | NUR ---
2L NC, NO RESP DISTRESS. RIGHT WRIST TR BAND CDI, NO BLEEDING OR HEMATOMA NOTED. NO C/O PAIN OR NAUSEA. VSS. CALL LIGHT WITHIN REACH.
--- NOTE | 2019-02-09 14:55 | NUR ---
RESTING QUIETLY WITH EYES CLOSED. RIGHT WRIST TR BAND CDI, NO BLEEDING OR HEMATOMA NOTED. DENIES ANY NEEDS. VSS. WILL CONTINUE TO MONITOR.
--- NOTE | 2019-02-09 15:10 | NUR ---
3CC OF AIR REMOVED FROM TR BAND WITH NO BLEEDIN NOTED. VSS. WILL CONTINUE TO MONITOR.
--- NOTE | 2019-02-09 15:25 | NUR ---
3CC OF AIR REMOVED FROM TR BAND WITH NO BLEEDING NOTED. SIPPING ON DRINK AND EATING SANDWICH WITH NO C/O NAUSEA. VSS. CALL LIGHT WITHIN REACH.
--- NOTE | 2019-02-09 15:40 | NUR ---
LEFT PIV D/C'D WITH CATHETER INTACT, BAND AID TO SITE. 3CC OF AIR REMOVED FROM TR BAND WITH NO BLEEDING NOTED. UP TO BEDSIDE TO GET DRESSED.
--- NOTE | 2019-02-09 15:50 | NUR ---
DISCHARGE INSTRUCTIONS GIVEN TO PT AND FAMILY, BOTH VERBALIZED UNDERSTANDING. REMAINING AIR REMOVED FROM TR BAND WITH NO BLEEDING NOTED. DRESSING PLACED TO SITE. AMBULATED TO RESTROOM.
--- NOTE | 2019-02-09 16:10 | NUR ---
TAKEN OUT VIA WHEELCHAIR BY CATH BEVERAGE INSPECTION MACHINE TENDER. LEFT FACILITY WITH FAMILY AND ALL PERSONAL BELONGINGS.
--- NOTE | 2019-02-16 11:27 | OP ---
PATIENT NAME: KENTRELL MERRILL MEDICAL RECORD: [id number] :43 LOCATION:D.CAT ADMISSION DATE: SURGEON: KASIA FLORES MD DATE OF OPERATION: 02/09/2019 PROCEDURES: 1. Left heart catheterization. 2. Selective coronary angiography. 3. Left ventriculogram. INDICATION: Angina, coronary artery disease, previous PTCA stent. PROCEDURE IN DETAIL: After informed consent was obtained and after a detailed description of risks, benefits as well as alternative therapies, the patient elected to proceed with angiogram and heart catheterization. The right radial area was prepped and draped in normal sterile fashion. Right radial artery was cannulated via modified Seldinger technique with placement of 5-Luxembourger sheath. All catheters exchanged through this sheath. FINDINGS: The left ventriculogram was performed in standard 30-degree TRUJILLO view, reveals good cardiac wall motion, ejection fraction is 60%. SELECTIVE CORONARY ANGIOGRAPHY: 1. Left main is with no significant angiographic disease. 2. Left anterior descending has previously placed stent that is widely patent with no significant restenosis. No disease elsewise throughout the LAD or its branches. 3. Left circumflex has mild irregularities, but no flow-limiting stenosis. 4. The right coronary artery has previously placed stent. This is widely patent with no significant restenosis. No disease elsewise throughout the RCA or its branches. OVERALL IMPRESSION: Wide patency of the previously placed stents with no significant restenosis. No disease elsewise. Continue medical management of the coronary artery disease and cardiac risk factors. TRANSINT:[id number] Voice Confirmation ID: [id number] DOCUMENT ID: [id number] KASIA FLORES MD at 1127 CC: [id number] DICTATION DATE: 02/09/19 140 TEAROOM HOST/HOSTESS: 02/09/19 1531 DEP CLI 02/09/19 [place] [address]
== END 2019-02-09 16:10 | disposition home or self-care (01) ==
LOC: D.CATH 09:55
PROVIDERS: ATTEND Internal Medicine Interventional Cardiology
DX: I25.119 Atherosclerotic heart disease of native coronary artery with unspecified angina pectoris (principal); Z95.5 Presence of coronary angioplasty implant and graft; Z01.812 Encounter for preprocedural laboratory examination